=== PATIENT | female | born 1975 | race American Indian/Alaskan Native ===

== ENCOUNTER 2019-05-05 11:26 | Emergency (ER) | payer MEDICAID ==
[2019-05-05 11:36] VITALS: BP 139/83
--- NOTE | 2019-05-05 11:37 | Event Note ---
ED Screening Note Date of service: 05/05/19 Time: 11:33 ED Screening Note: This is a 44 y.o. F. that presents to the ER with numbness to left anterior thigh for 3-4 days. PMH of HTN and DM2 She currently isn't on medication at this time or no follow up with PCP. Denies injury This initial assessment/diagnostic orders/clinical plan/treatment(s) is/are subject to change based on patients health status, clinical progression and re- assessment by fellow clinical providers in the ED. Further treatment and workup at subsequent clinical providers discretion. Patient/guardian urged not to elope from the ED as their condition may be serious if not clinically assessed and managed. Initial orders include:
--- NOTE | 2019-05-05 12:50 | Emergency Department Report ---
<DELVIS LOREDO - Last Filed: 05/05/19 12:46> ED Neuro Deficit HPI - General Chief Complaint: Extremity Injury, Lower Stated Complaint: L THIGH NUMB Time Seen by Provider: 05/05/19 11:33 Source: patient Mode of arrival: Ambulatory Limitations: No Limitations - History of Present Illness Initial Comments: 44-year-old -[place] female comes in for numbness to the left anterior thigh for 3-4 days. Patient denies any trauma, denies any pain no back pain. She reports a history of charley horse and stiffness. Patient reports a past medical history of diabetes and hypertension but is currently on no medication has no follow-up provider since 2012. 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 Onset/Timin -: days(s) Presenting Symptoms: Absent: Weak/Paralyzed One Side, Sudden, Severe Headache, Blurred/Loss of Vision, Facial Droop/Numbness, Unable to Speak Clearly, Altered Mental Status History of same: No Quality: numb (F anterior thigh) Improves With: none Worsens With: none On Anticoagulants: No Associated Symptoms: denies other symptoms - Related Data Allergies/Adverse Reactions: Allergies Allergy/AdvReac Type Severity Reaction Status Date / Time No Known Allergies Allergy Unverified 05/05/19 11:27 ED Review of Systems Comment: All other systems reviewed and negative Neurological: paresthesias (left anterior thigh) ED Past Medical Hx - Past Medical History Previous Medical History?: No - Surgical History Additional Surgical History: C/S - Social History Smoking Status: Never Smoker Substance Use Type: None ED Neuro Physical Exam - General Limitations: No Limitations General appearance: alert, in no apparent distress, obese Suspected Stroke: No - Head Head exam: Present: atraumatic, normocephalic - Eye Eye exam: Present: normal appearance - ENT ENT exam: Present: mucous membranes moist - Neck Neck exam: Present: normal inspection - Expanded Lower Extremity Exam Left Hip exam: Present: full ROM Upper Leg exam: Present: full ROM. Absent: tenderness, swelling, abrasion, laceration, ecchymosis, deformity, crepidus, dislocation, erythema Knee exam: Present: normal inspection, full ROM. Absent: tenderness, swelling Lower Leg exam: Present: normal inspection, full ROM Ankle exam: Present: normal inspection, full ROM Foot/Toe exam: Present: normal inspection, full ROM Neuro vascular tendon exam: Present: no vascular compromise - Back Exam Back exam: Present: normal inspection, full ROM - Neurological Exam Neurological exam: Present: alert, oriented X3 - Psychiatric Psychiatric exam: Present: normal affect, normal mood, other (anterior thigh patient has no feeling) - Medical Decision Making 34-year-old obese female comes in for numbness to the left anterior thigh for 3- 4 days. Patient denies any trauma no pain. Discussed the patient we will refer her to a neurologist. ED Disposition Clinical Impression: Paresthesias Disposition: DC-01 TO HOME OR SELFCARE Is pt being admited?: No Does the pt Need Aspirin: No Condition: Stable Instructions: Paresthesia (ED) Additional Instructions: Please follow up with neurologists as well as a primary care provider I have listed both below for your convenience. Referrals: SANTA ZAVALETA MD [Referring] - 3-5 Days [facility] [Outside] - 3-5 Days Forms: Work/School Release Form(ED) <BLANQUITA HALL S - Last Filed: 05/05/19 13:57> ED Review of Systems ROS: Stated complaint: L THIGH NUMB Other details as noted in HPI ED Course Vital Signs 05/05/19 11:34 Temperature 98.9 F Pulse Rate 99 H Respiratory 20 Rate Blood Pressure 139/83 O2 Sat by Pulse 99 Oximetry Critical care attestation.: If time is entered above; I have spent that time in minutes in the direct care of this critically ill patient, excluding procedure time. ED Disposition Is pt being admited?: No
== END 2019-05-05 13:39 | disposition home or self-care (01) ==
LOC: ED 11:26
DX: R20.2 Paresthesia of skin (principal); M79.652 Pain in left thigh
CPT/HCPCS: 99282